=== PATIENT | female | born 1985 | race Caucasian/White ===

== ENCOUNTER 2016-10-16 16:19 | Emergency (ER) | payer BC ==
[2016-10-16 16:49] VITALS: BP 94/57
--- NOTE | 2016-10-16 17:23 | EDM.PDOC ---
ED HPI GENERAL MEDICAL PROBLEM - General Chief Complaint: Lower Extremity Injury/Pain Stated Complaint: LEFT SIDE NUMBNESS/LEG Time Seen by Provider: 10/16/16 17:05 Source of Information: Reports: Patient History Limitations: Reports: No Limitations - History of Present Illness INITIAL COMMENTS - FREE TEXT/NARRATIVE: 31 yo female with a hx of migraine, a FHx of a blood clotting disorder in a sister, and a strong FHx of CVA presents with low back pain and left leg pain/ numbness. The sx's have waxed and waned for about a month. Is not a smoker, and is not on BC pills. Sometimes her left arm will also go numb, but she has not neck pain. Does not have a family doctor as she is relatively new in the area. Her sister was called from the ER and does not know the name of her clotting disorder, but it has caused her to have a CVA. The pain radiates to the level of the left knee from her back and the numbness to to the foot. No increased pain with coughing, but any movement of her back increases her pain. She does not recall any injury to the back. No incontinence. 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 Left Hip Pain Score (Numeric/FACES): 7 - Related Data Allergies Allergy/AdvReac Type Severity Reaction Status Date / Time sertraline [From Zoloft] Allergy Other Verified 10/16/16 16:46 Home Meds: Home Meds NK [No Known Home Meds] 10/16/16 [History] Past Medical History Psychiatric History: Reports: ADHD - Infectious Disease History Infectious Disease History: Reports: Chicken Pox - Past Surgical History Musculoskeletal Surgical History: Reports: Arthroscopic Knee, Carpal Tunnel, Other (See Below) Social & Family History - Tobacco Use Smoking Status *Q: Never Smoker - Caffeine Use Caffeine Use: Reports: Coffee - Recreational Drug Use Recreational Drug Use: No Review of Systems - Review of Systems Review Of Systems: See Below Constitutional: Reports: No Symptoms Nose: Reports: No Symptoms Mouth/Throat: Reports: No Symptoms Respiratory: Reports: No Symptoms Cardiovascular: Reports: No Symptoms GI/Abdominal: Reports: No Symptoms Genitourinary: Reports: No Symptoms Musculoskeletal: Reports: Back Pain Skin: Reports: No Symptoms Neurological: Reports: Numbness (down left leg) Psychiatric: Reports: No Symptoms ED EXAM, GENERAL - Physical Exam Exam: See Below Exam Limited By: No Limitations General Appearance: Alert, WD/WN, No Apparent Distress, Obese Eye Exam: Bilateral Eye: Normal Inspection Ears: Normal External Exam, Normal Canal, Hearing Grossly Normal Ear Exam: Bilateral Ear: Auricle Normal, Canal Normal Nose: Normal Inspection, Normal Mucosa, No Blood Throat/Mouth: Normal Inspection, Normal Lips, Normal Teeth, Normal Oropharynx, Normal Voice, No Airway Compromise Head: Atraumatic, Normocephalic Neck: Normal Inspection, Supple, Non-Tender, Full Range of Motion Respiratory/Chest: No Respiratory Distress, Lungs Clear, Normal Breath Sounds, No Accessory Muscle Use Cardiovascular: Regular Rate, Rhythm, No Edema GI/Abdominal: Non-Tender Back Exam: Normal Inspection, Vertebral Tenderness (lumbar). No: CVA Tenderness (R), CVA Tenderness (L) Extremities: Normal Inspection, Normal Range of Motion, Non-Tender, No Pedal Edema Neurological: Alert, Oriented, CN II-XII Intact, Normal Cognition, Sensory/ Motor Deficit (numbness to the lateral aspect of the left leg to the ankle. ), Other (DTR's, strength, and straight leg raising normal bilaterally. No sciatic notch pain. ) Psychiatric: Normal Affect, Normal Mood Skin Exam: Warm, Dry, Intact, Normal Color, No Rash Lymphatic: No Adenopathy Course - Vital Signs Last Recorded V/S: Last Vital Signs Temp 37.3 C 10/16/16 16:47 Pulse 91 10/16/16 16:47 Resp 16 10/16/16 16:47 BP 94/57 L 10/16/16 16:47 Pulse Ox 98 10/16/16 16:47 Departure - Departure Time of Disposition: 17:27 Disposition: Home, Self-Care 01 Condition: Fair Clinical Impression: Lumbar back pain with radiculopathy affecting left lower extremity - Discharge Information Referrals: PCP,None [Primary Care Provider] - Forms: ED Department Discharge, Return to Work/School Form Care Plan Goals: Take ibuprofen up to 600 mg every 6 hrs with food. Consider taking a baby aspirin daily with food for stroke prevention. Find out through your sister what blood disorder she has(she may need to consult her doctor for the exact name). Make an appt to be seen in the clinic for recheck, testing of your blood for the disorder your sister has, and perhaps for an MRI of your lumbar spine. Return to the ER if worse. You may add acetaminophen up to 1000 mg every 6 hrs as needed for added pain relief.
== END 2016-10-16 17:26 | disposition home or self-care (01) ==
LOC: JP.ED 16:19
DX: M54.16 Radiculopathy, lumbar region (principal); Z98.890 Other specified postprocedural states; Z88.8 Allergy status to other drugs, medicaments and biological substances
CPT/HCPCS: 99283